=== PATIENT | male | born 1955 | race Caucasian/White ===

== ENCOUNTER 2018-08-17 07:08 | Day surgery (SDC) | payer OTHER ==
[~2018-08-17] VITALS: Ht 180.3 cm; Wt 116.4 kg
[~2018-08-17 07:08] MED LIST: AMLO10 PO; FURO20 PO; LOSA25 PO; LOSARTAN-HCTZ1 EACH PO; Lasix40 MG PO; METO25 PO; METO25ER PO; VARE1 PO
[2018-08-17] MEDS ORDERED: ASPI81CH PO (08:28)
== END 2018-08-17 10:14 | disposition home or self-care (01) ==
LOC: ORSCSDS 07:08
PROVIDERS: Surgery
PROC: 0DBP8ZX Excision of Rectum, Via Natural or Artificial Opening Endoscopic, Diagnostic (ICD-10-PCS; principal; 2018-08-17 08:45)
DX: Z12.11 Encounter for screening for malignant neoplasm of colon (principal); K62.1 Rectal polyp; I10 Essential (primary) hypertension; J44.9 Chronic obstructive pulmonary disease, unspecified; F17.210 Nicotine dependence, cigarettes, uncomplicated; Z95.0 Presence of cardiac pacemaker; E11.9 Type 2 diabetes mellitus without complications; F41.9 Anxiety disorder, unspecified; Z79.899 Other long term (current) drug therapy
CPT/HCPCS: 88305; J7120